=== PATIENT | female | born 1965 | race Caucasian/White ===

== ENCOUNTER 2022-03-30 02:56 | Emergency (ER) | payer SELFPAY ==
--- NOTE | 2022-03-30 04:16 | EDPHYS ---
Physician Documentation [facility] Name: Giovanna Spencer Age: 56 yrs Sex: Female : 1965 Arrival Date: 03/30/2022 Time: 03:00 Bed 5 Private MD: KEITH Physician Edison Nichole MANAGER PHARMACEUTICAL: 03/30 03:04 LMP N/A - Post-menopause kl Historical: - Allergies: 03:02 No Known Allergies; kl - Home Meds: 03:02 None [Active]; kl - PMHx: 03:02 None; kl - PSHx: 03:02 None; kl - Immunization history:: Adult Immunizations not up to date. - Social history:: Smoking status: Patient reports the use of cigarette tobacco products, smokes one pack cigarettes per day. Vital Signs: 03:00 BP 146 / 86; Pulse 78; Resp 18; Temp 98.1(O); Pulse Ox 96% on R/A; Weight 71.5 kg (M); kl Height 5 ft. 2 in. (157.48 cm); Pain 6/10; 04:23 BP 146 / 86; Pulse 100; Resp 16; Pulse Ox 99% on R/A; ll3 03:00 Body Mass Index 28.83 (71.50 kg, 157.48 cm) MDM: 03:02 Patient medically screened. [facility] 03/30 03:06 Order name: CT Traumagram (Head C Spine CAP wo con) kl Administered Medications: No medications were administered Disposition Summary: 03/30/22 04:16 Discharge Ordered Location: Home farideh Problem: new farideh Symptoms: have improved farideh Condition: Stable farideh Diagnosis - Contusion of abdominal wall farideh - Contusion of back wall of thorax farideh Followup: farideh - With: Private Physician - When: 2 - 3 days - Reason: Recheck today's complaints, Continuance of care, Re-evaluation by your physician Discharge Instructions: - Discharge Summary Sheet farideh - Contusion farideh - Rib Contusion farideh - Contusion, Eigs-tr-Ruhj farideh Forms: - Medication Reconciliation Form farideh - Thank You Letter farideh - Antibiotic Education farideh - Prescription Opioid Use farideh Signatures: Dispatcher [employer] EDSarahi Crockett RN RN kl Anderson, Corey, MD MD farideh
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
[2022-03-30 11:38] VITALS: BP 146/86; TEMP 98.1
[2022-03-30 11:42] VITALS: O2SAT 99
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
== END 2022-03-30 04:23 | disposition home or self-care (01) ==
LOC: ER 02:56
DX: S30.1XXA Contusion of abdominal wall, initial encounter (principal); S20.229A Contusion of unspecified back wall of thorax, initial encounter; F17.210 Nicotine dependence, cigarettes, uncomplicated
CPT/HCPCS: 70450; 71250; 72125